=== PATIENT | female | born 1955 | race Caucasian/White ===

== ENCOUNTER 2017-08-20 10:06 | Emergency (ER) | payer OTHER ==
[2017-08-20 10:13] VITALS: BP 115/77; PULSE 55; RESP 18; TEMP 97.8
--- NOTE | 2017-08-20 10:19 | ED ---
Lower Extremity Injury HPI - General Chief Complaint: Extremity Injury, Lower Stated Complaint: Fell foot pain Time Seen by Provider: 08/20/17 10:13 Source: patient, RN notes reviewed Mode of arrival: wheelchair Limitations: no limitations - History of Present Illness Initial Comments: This is a 62-year-old female presents emergency Department chief complaint of left ankle injury. She states that she was walking into her house misstepped and fell forward. She states she injured her left ankle and not exactly sure how. She states she is sore in other places but no other major complaints. Denies any head injury no loss conscious. She is notices there is a large amount of swelling to the lateral aspect. She's had no prior fracture to her left ankle. She has increased pain with weightbearing denies any paresthesias. - Related Data Home Medications Medication Instructions Recorded Confirmed Aspirin 325 mg PO DAILY 06/10/14 06/11/14 Carvedilol [Coreg] 25 mg PO HS 06/10/14 06/11/14 Hydrochlorothiazide [Hydrodiuril] 25 mg PO DAILY 06/10/14 06/11/14 Levothyroxine Sodium [Synthroid] 25 mcg PO DAILY 06/10/14 06/11/14 Lisinopril [Zestril] 10 mg PO HS 06/10/14 06/11/14 Sertraline [Zoloft] 50 mg PO HS 06/10/14 06/11/14 Tolterodine Tartrate [Detrol LA] 4 mg PO HS 06/10/14 06/11/14 metFORMIN HCL [Glucophage] 500 mg PO BID 06/10/14 06/11/14 Previous Rx's Medication Instructions Recorded Hydrocodone/Acetaminophen [[place] 1 - 2 each PO Q4HR PRN #30 tab 06/11/14 5-325] Allergies Allergy/AdvReac Type Severity Reaction Status Date / Time No Known Allergies Allergy Verified 08/20/17 10:13 Review of Systems ROS Statement: Those systems with pertinent positive or pertinent negative responses have been documented in the HPI. ROS Other: All systems not noted in ROS Statement are negative. Past Medical History Past Medical History: Diabetes Mellitus, Hypertension, Osteoarthritis (OA), Thyroid Disorder Additional Past Medical History / Comment(s): left hip & neck pain, RLS History of Any Multi-Drug Resistant Organisms: None Reported Additional Past Surgical History / Comment(s): D & C, colonoscopy, left breast biopsy Past Anesthesia/Blood Transfusion Reactions: Previous Problems w/ Anesthesia Additional Past Anesthesia/Blood Transfusion Reaction / Comment(s): difficult intubation-supposed to have uterine ablation few years ago & couldn't complete, unsure what actual problem is Past Psychological History: Depression Smoking Status: Former smoker Past Alcohol Use History: None Reported Past Drug Use History: None Reported - Past Family History Sister(s) Family Medical History: Cancer General Exam Limitations: no limitations General appearance: alert, in no apparent distress Head exam: Present: atraumatic, normocephalic, normal inspection Respiratory exam: Present: normal lung sounds bilaterally. Absent: respiratory distress, wheezes, rales, rhonchi, stridor Cardiovascular Exam: Present: regular rate, normal rhythm, normal heart sounds. Absent: systolic murmur, diastolic murmur, rubs, gallop, clicks Extremities exam: Present: other (Left ankle there is moderate swelling and tenderness with palpation to the lateral malleolus, there is no medial malar tenderness there is no foot tenderness neurovascular intact no proximal tib-fib tenderness) Skin exam: Present: warm, dry, intact, normal color. Absent: rash Course Vital Signs 08/20/17 10:07 Temperature 97.8 F Pulse Rate 55 L Respiratory 18 Rate Blood Pressure 115/77 O2 Sat by Pulse 95 Oximetry Procedures - Orthopedic Splinting/Casting Injury #1 Side: left Lower Extremity Injury Location: short leg, ankle Lower Extremity Immobilizer: posterior splint, synthetic pre-padded splint Medical Decision Making - Medical Decision Making 62-year-old female presented for left ankle injury. She is found to have an avulsion fracture. She was splinted and follow up with orthopedics. Disposition Clinical Impression: Closed left ankle fracture Disposition: HOME SELF-CARE Condition: Stable Instructions: Ankle Fracture (ED) Additional Instructions: Please return to the Emergency Department if symptoms worsen or any other concerns. Is patient prescribed a controlled substance at d/c from ED?: No Referrals: Mariya Wilkinson MD [Primary Care Provider] - 1-2 days Rigo Andrade MD [Medical Doctor] - 1-2 days Time of Disposition: 11:27
--- NOTE | 2017-08-20 10:50 | XR ---
EXAMINATION TYPE: XR foot complete LT , 3 VIEWS DATE OF EXAM ORDERED: 08/20/2017 HISTORY: Pain. COMPARISON: None. FINDINGS: There is minimal degenerative change in the left first MTP joint. No fracture or dislocati on is seen. There is a small plantar calcaneal spur. IMPRESSION: 1. NO ACUTE OSSEOUS LESION. 2. MINIMAL DEGENERATIVE CHANGE. 3. SMALL, PLANTAR CALCANEAL SPUR.
--- NOTE | 2017-08-20 11:10 | XR ---
EXAMINATION TYPE: XR ankle complete LT , 3 VIEWS DATE OF EXAM ORDERED: 08/20/2017 HISTORY: Pain. COMPARISON: None. FINDINGS: There is soft tissue swelling about the ankle. There is an ossific density just distal to the medial malleolus which appears corticated but has sharp angles on the oblique projection. I could not exclude an avulsion. No ankle joint effusion is seen. There is a plantar calcaneal spur. IMPRESSION: PLEASE CORRELATE TO EXCLUDE AN AVULSION FRACTURE FROM THE MEDIAL MALLEOLUS.
== END 2017-08-20 11:40 | disposition home or self-care (01) ==
LOC: EC 10:06
DX: S82.892A Other fracture of left lower leg, initial encounter for closed fracture (principal); E11.9 Type 2 diabetes mellitus without complications; I10 Essential (primary) hypertension; E07.9 Disorder of thyroid, unspecified; F32.9 Major depressive disorder, single episode, unspecified; Z87.891 Personal history of nicotine dependence; Z79.82 Long term (current) use of aspirin; Z79.84 Long term (current) use of oral hypoglycemic drugs; Z79.899 Other long term (current) drug therapy; W18.39XA Other fall on same level, initial encounter; Y92.009 Unspecified place in unspecified non-institutional (private) residence as the place of occurrence of the external cause; Y93.01 Activity, walking, marching and hiking
CPT/HCPCS: 29515; 99283

== ENCOUNTER → 2018-08-31 | Outpatient (CLI) | payer OTHER ==
--- NOTE | 2018-09-04 16:46 | MM ---
Reason for exam: screening (asymptomatic). Last mammogram was performed 3 years and 5 months ago. History: Patient is postmenopausal. Family history of breast cancer in sister at age 60. Benign US breast localization LT, June 11, 2014. Benign US LT VAD breast biopsy of the left breast, May 07, 2012. Benign left US cyst aspiration of the left breast, January 05, 2010. Benign US left guided VAD of the left breast, January 05, 2010. Took hormonal contraceptives for 1 month. Taking progesterone for 1 year 1 month beginning at age 55. MG Screening Mammo w CAD Bilateral CC and MLO view(s) were taken. Prior study comparison: April 16, 2015, bilateral MG screening mammo w CAD. December 15, 2014, left breast MG 3d diag mammo w/cad LT. The breast tissue is heterogeneously dense. This may lower the sensitivity of mammography. Possible distortion central upper outer quadrant left breast. Asymmetric density 3 o'clock right breast anterior to middle depth. ASSESSMENT: Incomplete: need additional imaging evaluation, BI-RAD 0 RECOMMENDATION: Special view mammogram of both breasts. [facility] will attempt to contact patient to return for supplemental views.
== END | disposition home or self-care (01) ==
LOC: RADMAMWWP 09:46
PROVIDERS: ATTEND Family Medicine
DX: Z12.31 Encounter for screening mammogram for malignant neoplasm of breast (principal)
CPT/HCPCS: 77067

== ENCOUNTER → 2018-09-18 | Outpatient (CLI) | payer OTHER ==
--- NOTE | 2018-09-19 11:03 | MM ---
Reason for exam: additional evaluation requested from abnormal screening. Last mammogram was performed 1 month ago. History: Patient is postmenopausal. Family history of breast cancer in sister at age 60. Benign US breast localization LT, June 11, 2014. Benign US LT VAD breast biopsy of the left breast, May 07, 2012. Benign left US cyst aspiration of the left breast, January 05, 2010. Benign US left guided VAD of the left breast, January 05, 2010. Took hormonal contraceptives for 1 month. Taking progesterone for 1 year 1 month beginning at age 55. Physical Findings: Nurse did not find any significant physical abnormalities on exam. MG Work Up Mamm w CAD BILAT Bilateral spot compression CC, spot compression MLO, and ML view(s) were taken. Prior study comparison: August 31, 2018, bilateral MG screening mammo w CAD. April 16, 2015, bilateral MG screening mammo w CAD. The breast tissue is heterogeneously dense. This may lower the sensitivity of mammography. There is a 7mm persistent spiculated mass 6-7cm from nipple at 1 o'clock in the upper outer quadrant of the left breast. Benign appearing bilateral calcifications. The previously seen abnormality resolves on additional views and appears as fibroglandular tissue compatible with summation on the right breast. These results were verbally communicated with the patient and result sheet given to the patient on 09/18/18. ASSESSMENT: Incomplete: need additional imaging evaluation, BI-RAD 0 RECOMMENDATION: Ultrasound of the left breast. upper outer quadrant
--- NOTE | 2018-09-19 11:06 | USB ---
Reason for exam: additional evaluation requested from abnormal screening. History: Patient is postmenopausal. Family history of breast cancer in sister at age 60. Benign US breast localization LT, June 11, 2014. Benign US LT VAD breast biopsy of the left breast, May 07, 2012. Benign left US cyst aspiration of the left breast, January 05, 2010. Benign US left guided VAD of the left breast, January 05, 2010. Took hormonal contraceptives for 1 month. Taking progesterone for 1 year 1 month beginning at age 55. US Breast Workup Limited LT Left limited breast ultrasound including focal area of concern, retroareolar and axilla demonstrates a 0.6 x 0.4 x 0.4cm mixed lesion at 2 o'clock, likely benign cystic cluster and a 0.3 x 0.4 x 0.2cm mixed lesion at 2 o'clock, thought to correspond to mammographic finding, biopsy recommended. Confirm placement of the biopsy marker within the mammographic mass after biopsy. These results were verbally communicated with the patient and result sheet given to the patient on 09/18/18. ASSESSMENT: Suspicious, BI-RAD 4 RECOMMENDATION: Ultrasound core biopsy of the left breast. Called Dr. Wilkinson with mammographic findings and has scheduled an appointment for the patient for 11/07/[address] Rocha. Biopsy scheduled for 10/10/18 at 2:00. PRELIMINARY REPORT CALLED AND FAXED TO DR. ROCHA ON 09/19/18.
== END | disposition home or self-care (01) ==
LOC: RADMAMWWP 13:24
PROVIDERS: ATTEND Family Medicine
DX: R92.8 Other abnormal and inconclusive findings on diagnostic imaging of breast (principal)
CPT/HCPCS: 77066

== ENCOUNTER → 2018-10-10 | Day surgery (SDC) | payer OTHER ==
[2018-10-10 13:44] VITALS: RESP 16; BMI 44.4
[2018-10-10 14:34] VITALS: BP 139/85; PULSE 60; TEMP 97.7
--- NOTE | 2018-10-10 15:20 | USB ---
EXAMINATION TYPE: US biopsy breast VAD LT, MG diagnostic mammo LT wo CAD DATE OF EXAM: 10/10/2018 CLINICAL HISTORY: R92.8 ABN DAGO. TECHNIQUE: Ultrasound guided core biopsy of left breast. COMPARISON: Breast exams dating back to 08/31/2018 FINDINGS: The procedure of ultrasound guided core biopsy was explained to the patient. Benefits, alternatives, and risks were discussed. An informed consent was then obtained. Preprocedural timeout was performed. The patient was placed in supine positioning for imaging and for the procedure. The overlying skin was prepped and draped in usual sterile fashion. Lidocaine buffered with bicarbonate was used as anesthetic into the skin and subcutaneous tissue up to a 0.3 x 0.4 x 0.2 cm mass at the 2:00 position in the left breast. Under ultrasound guidance, a 12-gauge vacuum assisted biopsy gun device was used to obtain 4 core samples. Following this, a ribbon-shaped biopsy marker was left at the site of biopsy. Postprocedure mammogram demonstrates appropriate biopsy marker placement, however this does not correspond with the mammographic spiculated mass in question. The patient tolerated the procedure well without any immediate complication. The patient was kept in the radiology department for short stay after the procedure and then discharged home in stable condition. IMPRESSION: Successful, uncomplicated ultrasound guided core biopsy of 0.3 x 0.4 x 0.2 cm mass at the 2:00 position in the left breast, full pathology results to follow. Of note the ribbon-shaped biopsy marker does NOT correspond to the mammographic abnormality in question is a 1.5 cm away from this on both views. Stereotactic biopsy is recommended for the spiculated mass at the upper outer quadrant of the left breast at middle depth. 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 See Surgical Pathology Cancer Case Summary and Comment. Recommendation Surgical consult of the left breast. Additional stereotactic biopsy recommended for a spiculated mass 1.5cm away. [facility]
== END ==
LOC: RADUSWWP 13:05
PROVIDERS: ATTEND Surgery
DX: D05.12 Intraductal carcinoma in situ of left breast (principal); R92.1 Mammographic calcification found on diagnostic imaging of breast
CPT/HCPCS: 77065; 19083; A4648; J2001; 88305; 88341; 88342

== ENCOUNTER → 2018-11-09 | Day surgery (SDC) | payer OTHER ==
[2018-11-09 09:52] VITALS: RESP 16; BMI 44.4
[2018-11-09 11:25] VITALS: BP 126/82; PULSE 63; TEMP 98.1
--- NOTE | 2018-11-09 12:22 | MM ---
EXAMINATION TYPE: MG stereo VAD BX LT DATE OF EXAM: 11/09/2018 COMPARISON: Diagnostic left mammogram dated 10/10/2018 CLINICAL HISTORY: Left breast spiculated mass 1.5 cm from the left biopsy marker. Sterilely dedicated biopsy was recommended for this highly suspicious mass. TECHNIQUE: Stereotactic guided core biopsy of left breast. FINDINGS: The procedure of stereotactic guided core biopsy was explained to the patient. Benefits, alternatives, and risks were discussed. An informed consent was then obtained. Preprocedural timeout was performed. The shortness pathway for biopsy was chosen. Shortness pathway was lateral to medial approach. Preprocedural localization images were obtained and a 7 mm mass within the upper outer quadrant of the left breast was demonstrated. Coordinates were calculated. Subsequently 10 cc of lidocaine without epinephrine was utilized to anesthetize the skin and deeper subcutaneous soft tissues. The needle was advanced to the appropriate depth. Prefire images were obtained ensuring appropriate location. Postfire injection of 10 cc of lidocaine with epinephrine was utilized to anesthetize the site of biopsy. A vacuum assisted biopsy gun was used to obtain 8 core samples. The patient tolerated the procedure well without any immediate complication. The patient was kept in the radiology department for short stay after the procedure and then discharged home in stable condition. Post biopsy mammogram shows the biopsy marker to appear in satisfactory position relative to the targeted area of concern on the preprocedure images without migration. IMPRESSION: SUCCESSFUL, UNCOMPLICATED STEREOTACTIC GUIDED CORE BIOPSY OF A HIGHLY SUSPICIOUS SPICULATED MASS OF THE LEFT BREAST IN THE UPPER OUTER QUADRANT, FULL PATHOLOGY RESULTS TO FOLLOW. 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 See Surgical Pathology Cancer Case Summary and comment. Recommendation Surgical consult of the left breast. Definitive surgical/medical management at two sites on the left. Left breast 2 o'clock biopsied under ultrasound on 10/10/18, surgical management, DCIS. [facility]
== END | disposition home or self-care (01) ==
LOC: RADMAMWWP 09:24
PROVIDERS: ATTEND Surgery
DX: C50.412 Malignant neoplasm of upper-outer quadrant of left female breast (principal); Z17.0 Estrogen receptor positive status [ER+]
CPT/HCPCS: 88305; 88342; 88341; 19081; A4648; J2001

== ENCOUNTER → 2018-11-14 | Outpatient (CLI) | payer OTHER ==
[2018-11-14 16:03] LABS: Basophils # (A) 0.1 k/uL (0-0.2); Basophils % (A) 1 %; Eosinophils # (A) 0.3 k/uL (0-0.7); Eosinophils % (A) 4 %; HCT 47.4 % (34.0-46.0); HGB 16.1 gm/dL (11.4-16.0); Lymphocytes # (A) 2.5 k/uL (1.0-4.8); Lymphocytes % (A) 34 %; MCH 31.6 pg (25.0-35.0); MCV 92.9 fL (80.0-100.0); Mean Platelet Volume 6.3; Monocytes # (A) 0.4 k/uL (0-1.0); Monocytes % (A) 6 %; Neutrophils % (A) 54 %; Platelet Count 209 k/uL (150-450); RDW 12.7 % (11.5-15.5); WBC 7.4 k/uL (3.8-10.6)
== END | disposition home or self-care (01) ==
LOC: LABPAT 14:31
PROVIDERS: ATTEND Obstetrics & Gynecology
DX: Z01.818 Encounter for other preprocedural examination (principal); N93.9 Abnormal uterine and vaginal bleeding, unspecified
CPT/HCPCS: 85025; 93005

== ENCOUNTER → 2018-11-23 | Outpatient (CLI) | payer OTHER | END | disposition home or self-care (01) | LOC: RADMRIMAIN 12:12 | PROVIDERS: ATTEND Surgery | DX: Z53.9 Procedure and treatment not carried out, unspecified reason (principal) ==

== ENCOUNTER 2018-12-13 10:38 | Day surgery (SDC) | payer OTHER ==
[2018-12-10 14:36] VITALS: BMI 44.5
--- NOTE | 2018-12-12 20:44 | P.GSHP ---
History of Present Illness H&P Date: 12/12/18 Chief Complaint: Left breast cancer 63-year-old female underwent recent mammogram and ultrasound. Ultrasound core biopsy revealed rate 1-2 DCIS. Clip was 1.5 cm away from the initial abnormality seen on mammogram. Patient then went for stereotactic core biopsy which revealed invasive ductal cancer. She is ER/[place] positive. Again 2 areas in close proximity. MRI was scheduled after presenting her case at breast tumor conference. Unfortunately patient is not able to fit in the local MRI units as well as the open MRI units outside of town that we have contacted. She is not interested in mastectomy. She is now interested in plastic surgery evaluation at this time. She would like to proceed with breast conservation. Patient is otherwise asymptomatic. History of difficult intubation. She was taking progesterone for uterine wall thickening. She had previously been scheduled for uterine ablation. Past Medical History Past Medical History: Cancer, Diabetes Mellitus, Hypertension, Osteoarthritis (OA), Thyroid Disorder Additional Past Medical History / Comment(s): left hip & neck pain, RLS, vaginal spotting, lt breast cancer History of Any Multi-Drug Resistant Organisms: None Reported Additional Past Surgical History / Comment(s): D & C, colonoscopy, left breast biopsy Past Anesthesia/Blood Transfusion Reactions: Previous Problems w/ Anesthesia Additional Past Anesthesia/Blood Transfusion Reaction / Comment(s): difficult intubation-supposed to have uterine ablation few years ago & couldn't complete, unsure what actual problem is Smoking Status: Former smoker - Past Family History Sister(s) Family Medical History: Cancer Medications and Allergies Home Medications Medication Instructions Recorded Confirmed Type Aspirin 325 mg PO DAILY 06/10/14 12/10/18 History Carvedilol [Coreg] 25 mg PO HS 06/10/14 12/10/18 History Hydrochlorothiazide [Hydrodiuril] 25 mg PO HS 06/10/14 12/10/18 History Levothyroxine Sodium [Synthroid] 75 mcg PO DAILY 06/10/14 12/10/18 History Lisinopril [Zestril] 10 mg PO HS 06/10/14 12/10/18 History Sertraline [Zoloft] 50 mg PO HS 06/10/14 12/10/18 History Tolterodine Tartrate [Detrol LA] 4 mg PO HS 06/10/14 12/10/18 History metFORMIN HCL [Glucophage] 1,000 mg PO BID 06/10/14 12/10/18 History Gabapentin [Neurontin] 1 - 2 tab PO HS 10/05/18 12/10/18 History Loratadine [Claritin] 10 mg PO DAILY 10/05/18 12/10/18 History glipiZIDE [Glucotrol XL] 2.5 mg PO DAILY 11/16/18 12/10/18 History Ergocalciferol [Vitamin D2] 50,000 unit PO SA 12/10/18 12/10/18 History Allergies Allergy/AdvReac Type Severity Reaction Status Date / Time No Known Allergies Allergy Verified 12/10/18 14:27 Surgical - Exam Physical exam: General: Well-developed, well-nourished HEENT: Normocephalic, sclerae nonicteric Left breast: No masses, no adenopathy, previous scars Right breast: No masses, no adenopathy Abdomen: Nontender, nondistended Extremities: No edema Neuro: Alert and oriented Assessment and Plan (1) Breast cancer, left Narrative/Plan: 63-year-old female with left breast cancer. 2 separate areas recently biopsy 1 by ultrasound 1 by stereotactic technique. These 2 areas within 1.5 cm of one another. MRI was ordered to evaluate the extent of this area and also to evaluate for other areas of possible invasive or preinvasive malignancy. Unfortunately we could not follow through with the MRI given the patient's body habitus. She is interested in proceeding with lumpectomy at this time. We'll schedule left breast lumpectomy with possible to wire localization, sentinel lymph node biopsy, possible axillary aries dissection. Risks of bleeding, infection, recurrence, possible positive margins, possible need for additional surgery, respiratory and cardiac complications. She understands and wishes to proceed. Status: Acute Code(s): C50.912 - MALIGNANT NEOPLASM OF UNSPECIFIED SITE OF LEFT FEMALE BREAST SNOMED Code(s): 068193197
--- NOTE | 2018-12-12 20:44 | P.NAPBC ---
NAPBC Queries - NAPBC Queries Was patient's case review presented at [facility] tumor board? If no, comment.: Yes Was patient's pathology reviewed at [facility]? If no, comment.: Yes Was breast conservation surgery offered? If no, comment.: Yes Was sentinel node biopsy offered? If no, comment.: Yes Was diagnosis confirmed by percutaneous core biopsy? If no, comment.: Yes Is patient mastectomy patient?: Yes Was a preop referral to reconstructive surgeon offered?: Yes Clinical Stage: 1a
[~2018-12-13 10:38] MED LIST: HEPARIN SODIUM,PORCINE 5,000 UNIT/ML 1 ML VIAL SQ ONE; HYDROmorphone 0.5 MG/0.5 ML SYRINGE IVP PRN; LACTATED RINGERS 1,000 ML IV SCH; ONDANSETRON 4 MG/2 ML VIAL IVP PRN; Pre Op ABX Message 1 EACH MISC MISCELLANE ONE
[2018-12-13] MEDS ORDERED: ALPRAZolam 0.25 MG TAB PO ONE (11:15)
[2018-12-13 11:31] LABS: Glucose,Whole Blood 147 mg/dL (75-99)
[2018-12-13] MEDS ORDERED: LIDOCAINE 1% INJ 10MG/ML (20 ML MDV) SQ ONE (12:12)
[2018-12-13] MEDS ORDERED: BUPIVACAINE (PF) 0.5% 30 ML VIAL SQ ONE ×4 (13:25→14:23)
[2018-12-13] MEDS ORDERED: MIDAZOLAM 2 MG/2 ML VIAL ONE (13:40)
[2018-12-13] MEDS ORDERED: PROPOFOL 10 MG/ML 20 ML VIAL IV ONE (13:40)
[2018-12-13] MEDS ORDERED: ePHEDrine SULFATE/0.9% NACL/PF 50 MG/5 ML SYRINGE IV ONE (13:40)
[2018-12-13] MEDS ORDERED: GLYCOPYRROLATE 0.2 MG/ML 2 ML VIAL ONE (13:40)
[2018-12-13] MEDS ORDERED: SUCCINYLCHOLINE CHLORIDE 100 MG/5 ML SYR IV ONE (13:40)
[2018-12-13] MEDS ORDERED: LIDOCAINE 1% INJ 10MG/ML (20 ML MDV) ONE (13:40)
[2018-12-13] MEDS ORDERED: fentaNYL (PF) 50 MCG/ML 2 ML AMP ONE (13:40)
[2018-12-13] MEDS ORDERED: KETOROLAC 30 MG/ML 1 ML VIAL ONE (13:40)
--- NOTE | 2018-12-13 13:41 | NM ---
EXAMINATION TYPE: NM sentinel node injection DATE OF EXAM: 12/13/2018 COMPARISON: NONE HISTORY: Left breast cancer TECHNIQUE AND FINDINGS: The procedure of sentinel lymph node injection was explained to the patient. The benefits, alternatives, and risks were discussed. An informed consent was then obtained. Overlying skin is cleaned with sterile alcohol. Following this, 490 uCi [id number] Tilmanocept was inject ed in the upper outer aspect of the left nipple intradermally. The patient tolerated the procedure well without any immediate complication. The patient was kept in the radiology department for short stay after the procedure and then taken to surgery for surgical p rocedure what is presumed intraoperative gamma probe will be used for sentinel lymph node detection. IMPRESSION: Left breast radiotracer injection for sentinel node localization as above.
[2018-12-13] MEDS ORDERED: METHYLENE BLUE 50 MG/10 ML AMPUL INJ ONE (14:02)
[2018-12-13] MEDS ORDERED: SODIUM CHLORIDE 0.9% 150 ML with ceFAZolin 3,000 MG IV ONE ×2 (14:02)
[2018-12-13] MEDS ORDERED: LACTATED RINGERS 1,000 ML IV ONE (15:30)
[2018-12-13] MEDS ORDERED: NALOXONE 0.4 MG/ML 1 ML VIAL IV PRN (15:41)
[2018-12-13] MEDS ORDERED: HYDROcodone/APAP 5-325MG 1 EACH TAB PO PRN (15:41)
--- NOTE | 2018-12-13 15:43 | MM ---
EXAMINATION TYPE: MG pre op loc each addl LT, MG pre op needle loc LT, MG surgical specimen LT DATE OF EXAM: 12/13/2018 COMPARISON: 11/09/2018, 10/10/2018 and 09/18/2018 CLINICAL HISTORY: 2 site left breast biopsy-proven breast cancer with request for mammographic guided needle localization TECHNIQUE: 2 separate needle localization with wire placement and surgical excision of areas of concern in the left breast (invasive differentiated ductal carcinoma-T shaped marker and ductal carcinoma in [id number] biopsy marker). FINDINGS: The procedure of needle localization with wire placement and than surgical excision was explained to the patient. Benefits, alternatives, and risks were discussed. An informed consent was then obtained. Preprocedural timeout was performed. Site A (ribbon biopsy marker): The shortest pathway for procedure was chosen. Shortest pathway was CC from above approach. The overlying skin was prepped and draped in usual sterile fashion. Lidocaine buffered with bicarbonate was used as anesthetic into the skin and subcutaneous tissue up to the level of area of concern. A 5 cm needle was used. It was placed via a CC from above approach under mammographic guidance. Subsequent 90 degrees mammogram show the needle to be in satisfactory position relative to the targeted area. At this point, wire was placed and the needle was withdrawn. The wire was fixed to patient's skin. Images were marked for surgeon. Site B (T-shaped biopsy marker): The shortest pathway for procedure was chosen. Shortest pathway was CC from above approach. The overlying skin was prepped and draped in usual sterile fashion. Lidocaine buffered with bicarbonate was used as anesthetic into the skin and subcutaneous tissue up to the level of area of concern. A 5 cm needle was used. It was placed via a CC from above approach under mammographic guidance. Subsequent 90 degrees mammogram show the needle to be in satisfactory position relative to the targeted area. At this point, wire was placed and the needle was withdrawn. The wire was fixed to patient's skin. Images were marked for surgeon. The patient tolerated the procedure well without any immediate complication. The patient was kept in the radiology department for short stay after the procedure and then taken to surgery for surgical excision. Targeted biopsy markers and wire are identified in specimen mammogram. The patient was kept in hospital for short stay after the procedure and then discharged home in stable condition. Findings were communicated with the OR at 1541 PM on 12/13/2018 IMPRESSION: Successful, uncomplicated needle localization with wire placement and surgical excision of 2 left-sided biopsy markers indicating the known biopsy-proven breast cancer, full pathology results to follow. Pathology Results: Malignant A. LEFT BREAST, SENTINEL LYMPH NODE BIOPSY: One lymph node negative for metastatic adenocarcinoma as determined by interpretation of H+E as well as appropriately controlled ARMAND and cytokeratin 7 stained sections. B. LEFT BREAST MASS, LUMPECTOMY: Invasive moderately differentiated ductal carcinoma (Grade 2) and intermediate grade duct carcinoma in situ. Infiltrating duct carcinoma focally contacts the green inked inferior margin and DCIS is either at near the inferior anterior blue/green margin. See Specimen C. C. NEW LEFT BREAST MARGIN, EXCISION: Low grade duct carcinoma in situ not contacting the new blue/green/purple inked margin of excision. See Surgical Pathology Cancer Case Summary. Recommendation Surgical consult of the left breast. Continued surgical management. [facility]
--- NOTE | 2018-12-13 15:47 | P.OP ---
Date of Procedure: 12/13/18 Procedure(s) Performed: REOPERATIVE DIAGNOSIS: Left breast cancer POSTOPERATIVE DIAGNOSIS: Same PROCEDURE: Left Breast wire localization lumpectomy with sentinel lymph node biopsy SURGEON: Josefina EBL: Minimal ANESTHESIA: General COMPLICATIONS: None OPERATIVE PROCEDURE: Patient was placed on the operating room table in the supine position. 2 mL of methylene blue was injected into the subareolar space. The breast was then massaged for 5 minutes. The breast was prepped and draped in usual sterile fashion. The left axilla was addressed at that time. The hot spot in the right axilla was identified. The degree of radioactivity was actually quite minimal. A small curvilinear incision was made using the scalpel. Dissection down through the subcutaneous tissues took place using electrocautery. Using the neoprobe I identified a single lymph node that was radioactive. No residual radioactivity was encountered. There was no blue dye present within the dissected axilla. This lymph node appeared clinically benign. This was sent to pathology for permanent sectioning. No bleeding was seen. The subcutaneous tissues were closed using 3-0 Vicryl sutures. The skin was closed using 4-0 Monocryl sutures. The wire entrance site was then addressed. This was present at the 2:00 location. 2 wires were entering the skin approximate 1 cm apart from one another. A curvilinear incision was made adjacent to the wire entrance site. I followed the wires down into the breast tissue. An adequate lumpectomy specimen then took place around the wires. Margins of 1.5-2 cm worth attempted to be achieved. Palpation of the specimen suggested that the inferior margin was indurated and clinically somewhat suspicious. This margin included a small portion of the lateral and medial margin as well. This new margin was painted on the new side using the appropriate 3 colors for medial inferior and lateral. The initial specimen was also painted the appropriate 6 colors. Clips were used to identify the lumpectomy cavity. The clips were confirmed to be within the lumpectomy specimen by radiology. The subcutaneous tissues were closed using 3-0 Vicryl sutures. The skin was closed using a running 4-0 Monocryl stitch. Skin glue and sterile dressings were then applied. DISPOSITION: Stable to recovery room
[2018-12-13 15:58] VITALS: TEMP 97.9
[2018-12-13 17:12] VITALS: RESP 18
[2018-12-13] MEDS ORDERED: HYDROcodone/APAP 5-325MG 1 EACH TAB PO ONE (17:51)
[2018-12-13 18:17] VITALS: BP 144/88; PULSE 75
== END 2018-12-13 18:40 | disposition home or self-care (01) ==
LOC: OR 10:38
PROVIDERS: ATTEND Surgery
DX: C50.912 Malignant neoplasm of unspecified site of left female breast (principal); C77.3 Secondary and unspecified malignant neoplasm of axilla and upper limb lymph nodes; E11.9 Type 2 diabetes mellitus without complications; I10 Essential (primary) hypertension; M19.90 Unspecified osteoarthritis, unspecified site; E07.9 Disorder of thyroid, unspecified; G25.81 Restless legs syndrome; Z87.891 Personal history of nicotine dependence; Z79.84 Long term (current) use of oral hypoglycemic drugs; Z79.82 Long term (current) use of aspirin; Z79.890 Hormone replacement therapy; Z79.899 Other long term (current) drug therapy
CPT/HCPCS: 19301; 38525; 81025; 84132; 88342; 88307; 88341; 76098; 38792; A9520; J2250; J1644; J2405; J0690; J2001; J3010; J1885; J0330; J2704; Q9968; 19282

== ENCOUNTER → 2019-07-02 | Outpatient (CLI) | payer OTHER ==
[2019-07-02 13:25] LABS: Basophils # (A) 0.1 k/uL (0-0.2); Basophils % (A) 1 %; Eosinophils # (A) 0.4 k/uL (0-0.7); Eosinophils % (A) 6 %; HCT 48.2 % (34.0-46.0); HGB 15.6 gm/dL (11.4-16.0); Lymphocytes # (A) 2.1 k/uL (1.0-4.8); Lymphocytes % (A) 28 %; MCH 30.2 pg (25.0-35.0); MCHC 32.4 g/dL (31.0-37.0); MCV 93.4 fL (80.0-100.0); Mean Platelet Volume 7.5; Monocytes # (A) 0.4 k/uL (0-1.0); Monocytes % (A) 6 %; Neutrophils # (A) 4.5 k/uL (1.3-7.7); Neutrophils % (A) 59 %; Platelet Count 228 k/uL (150-450); RBC 5.16 m/uL (3.80-5.40); RDW 12.9 % (11.5-15.5); WBC 7.7 k/uL (3.8-10.6)
== END | disposition home or self-care (01) ==
LOC: LABPAT 11:57
PROVIDERS: ATTEND Obstetrics & Gynecology
DX: Z01.818 Encounter for other preprocedural examination (principal); N95.0 Postmenopausal bleeding; N85.01 Benign endometrial hyperplasia
CPT/HCPCS: 85025

== ENCOUNTER → 2019-07-05 | Outpatient (CLI) | payer OTHER | END | disposition home or self-care (01) | LOC: LABWHC1 11:01 | PROVIDERS: ATTEND Obstetrics & Gynecology | DX: Z11.59 Encounter for screening for other viral diseases (principal) ==

== ENCOUNTER 2019-07-08 10:00 | Day surgery (SDC) | payer OTHER ==
[2019-07-04 14:52] VITALS: BMI 44.5
[~2019-07-08 10:00] MED LIST changes: +DEXAMETHASONE SOD PHOSPHATE 10 MG/ML 1 ML VIAL IV ONE; -HEPARIN SODIUM,PORCINE 5,000 UNIT/ML 1 ML VIAL SQ ONE; -LACTATED RINGERS 1,000 ML IV SCH; +ONDANSETRON 4 MG/2 ML VIAL IVP ONE; -ONDANSETRON 4 MG/2 ML VIAL IVP PRN
[2019-07-08] MEDS: LACTATED RINGERS 1,000 ML IV SCH ×2 (10:25→11:31)
[2019-07-08] MEDS ORDERED: KETOROLAC 30 MG/ML 1 ML VIAL ONE (11:28)
[2019-07-08] MEDS ORDERED: LIDOCAINE 1% INJ 10MG/ML (20 ML MDV) ONE (11:28)
[2019-07-08] MEDS ORDERED: MIDAZOLAM 2 MG/2 ML VIAL ONE (11:28)
[2019-07-08] MEDS ORDERED: SUCCINYLCHOLINE CHLORIDE 100 MG/5 ML SYR IV ONE (11:28)
[2019-07-08] MEDS ORDERED: PROPOFOL 10 MG/ML 20 ML VIAL IV ONE (11:28)
[2019-07-08] MEDS ORDERED: fentaNYL (PF) 50 MCG/ML 2 ML AMP ONE (11:28)
--- NOTE | 2019-07-08 12:05 | P.OP ---
Date of Procedure: 07/08/19 Preoperative Diagnosis: Postmenopausal bleeding, history of non-atypical endometrial hyperplasia, partially treated Postoperative Diagnosis: Multiple large endometrial polyps, grade 2 rectocele, grade 2 uterine prolapse. Procedure(s) Performed: Hysteroscopy, fractional D&C Anesthesia: JESSE Surgeon: Darline Berman Estimated Blood Loss (ml): 25 IV fluids (ml): 400 Urine output (ml): 200 Pathology: other (Endocervical curettings, endometrial curettings and polyps) Condition: stable Disposition: PACU Operative Findings: Grade 2 rectocele. At least grade 2 uterine prolapse, large cervix. Uterine depth 11 cm. Multiple large endometrial polyps. Description of Procedure: Patient is brought to the operating suite where general anesthetic is administered. She's placed in the dorsal lithotomy position. The appropriate timeout is performed to assure proper patient and procedural identification. Antibiotics are not deemed necessary. The cervix vagina and lower abdominal ott are all prepped and draped in usual sterile fashion. Examination under anesthesia reveals a 10 week size uterus, anteverted and mobile. Negative adnexa bilaterally. Bladder is drained for approximately 200 mL of clear yellow urine. Weighted speculum was placed into the vagina. Anterior lip of the cervix is grasped with a double-tooth tenaculum. Endocervical curettings are sent to pathology, procured utilizing a Kevorkian curette. The uterus then sounds to a depth of 11 cm in the anteverted position. The cervix is gently and systematically dilated using Hanks dilators. Hysteroscope was inserted and the cavity is distended with sterile saline. Inspection of the cavity reveals multiple large endometrial polyps. Hysteroscope was removed. A large sharp curette is used and the polyps are removed. A ring forcep is used for final polyp removal. The hysteroscope was once again placed and the cavity is noted to be clear. The cervix is hemodynamically stable. No active bleeding is noted. All sponge needle and enhancement counts are correct at the end of the procedure. Patient is brought back to recovery room in very good condition with stable vital signs including blood pressure 105/62, pulse 50, 95% O2 saturation. Toradol is given prior to leaving the operative suite. Patient will follow-up with me in the office in 2 weeks.
[2019-07-08 12:09] VITALS: TEMP 97.3
[2019-07-08 12:36] LABS: Glucose,Whole Blood 152 mg/dL (75-99)
[2019-07-08 12:37] LABS: Glucose,Whole Blood 157 mg/dL (75-99)
[2019-07-08 13:22] VITALS: RESP 20
[2019-07-08 13:40] VITALS: BP 134/79; PULSE 61
== END 2019-07-08 13:53 | disposition home or self-care (01) ==
LOC: OR 10:00
PROVIDERS: ATTEND Obstetrics & Gynecology
DX: N84.0 Polyp of corpus uteri (principal); N81.2 Incomplete uterovaginal prolapse; N95.0 Postmenopausal bleeding; F32.9 Major depressive disorder, single episode, unspecified; I10 Essential (primary) hypertension; G25.81 Restless legs syndrome; E11.9 Type 2 diabetes mellitus without complications; F17.210 Nicotine dependence, cigarettes, uncomplicated; K08.89 Other specified disorders of teeth and supporting structures; E07.9 Disorder of thyroid, unspecified; R32 Unspecified urinary incontinence; E66.01 Morbid (severe) obesity due to excess calories; Z68.41 Body mass index [BMI] 40.0-44.9, adult; Z85.3 Personal history of malignant neoplasm of breast; Z98.890 Other specified postprocedural states; Z79.82 Long term (current) use of aspirin; Z79.899 Other long term (current) drug therapy; Z79.84 Long term (current) use of oral hypoglycemic drugs; Z79.890 Hormone replacement therapy; Z91.89 Other specified personal risk factors, not elsewhere classified; Z87.898 Personal history of other specified conditions; Z82.49 Family history of ischemic heart disease and other diseases of the circulatory system; Z80.3 Family history of malignant neoplasm of breast; Z80.0 Family history of malignant neoplasm of digestive organs
CPT/HCPCS: 58558; 88305; 84132; J2250; J1100; J2405; J2001; J3010; J1885; J0330; J2704

== ENCOUNTER → 2020-03-12 | Outpatient (CLI) | payer OTHER ==
--- NOTE | 2020-03-13 10:27 | MM ---
Reason for exam: screening (asymptomatic). Last mammogram was performed 1 year and 5 months ago. History: Patient is postmenopausal and has history of breast cancer at age 63. Family history of breast cancer in sister at age 60. Malignant MG pre op loc each addl LT of the left breast, December 13, 2018. Malignant MG pre op needle loc LT of the left breast, December 13, 2018. 2 lumpectomies of the left breast, December 13, 2018. Malignant MG stereo VAD BX LT of the left breast, November 09, 2018. Malignant US biopsy breast VAD LT of the left breast, October 10, 2018. Benign US breast localization LT, June 11, 2014. Benign US LT VAD breast biopsy of the left breast, May 07, 2012. Benign left US cyst aspiration of the left breast, January 05, 2010. Benign US left guided VAD of the left breast, January 05, 2010. Took hormonal contraceptives for 1 month. Took progesterone for 1 year 1 month beginning at age 55. Taking antineoplastic beginning at age 63. Physical Findings: A clinical breast exam by your physician is recommended on an annual basis and results should be correlated with mammographic findings. MG Diagnostic Mammo w CAD EDWIN Bilateral CC, MLO, and XCCL view(s) were taken. Prior study comparison: October 10, 2018, left breast MG diagnostic mammo LT wo CAD. September 18, 2018, bilateral MG work up mamm w CAD BILAT. Post biopsy changes left upper outer quadrant. No significant new findings when compared with previous films. These results were verbally communicated with the patient and result sheet given to the patient on 03/12/20. ASSESSMENT: Benign, BI-RAD 2 RECOMMENDATION: Follow-up diagnostic mammogram of both breasts in 1 year.
== END | disposition home or self-care (01) ==
LOC: RADMAMWWP 10:03
PROVIDERS: ATTEND Family Medicine
DX: Z08 Encounter for follow-up examination after completed treatment for malignant neoplasm (principal); Z85.3 Personal history of malignant neoplasm of breast
CPT/HCPCS: 77066

== ENCOUNTER → 2021-06-01 | Outpatient (CLI) | payer MEDICARE, OTHER ==
[2021-06-02 01:07] LABS: HCT 48.8 % (37.2-46.3); HGB 15.9 g/dL (12.0-15.0); MCH 30.3 pg (27.0-32.0); MCHC 32.6 g/dL (32.0-37.0); Mean Platelet Volume 10.2 fL (9.5-12.2); NRBC Per 100 WBC 0 /100 WBCS (0.0-0.0); Platelet Count 270 X 10*3/uL (140-440); RBC 5.25 X 10*6/uL (4.10-5.20); RDW 12.6 % (11.5-14.5); WBC 8.75 X 10*3/uL (4.50-10.00)
[2021-06-02 02:49] LABS: ALT 25 U/L (8-44); AST 31 U/L (13-35); African American GFR (CKD) 76.6 (60.0-200.0); Albumin 4.9 g/dL (3.8-4.9); Albumin/Globulin Ratio 1.87 (1.60-3.17); Alkaline Phosphatase 93 U/L (41-126); BUN/Creat Ratio 13.17 Ratio (12.00-20.00); Calcium 10.1 mg/dL (8.7-10.3); Carbon Dioxide 23.8 mmol/L (20.0-27.5); Chloride 98 mmol/L (96-109); Chol/HDL Ratio 4.32 Ratio; Creatine Kinase 107 U/L (26-186); Globulin 2.6 g/dL (1.6-3.3); Glucose 171 mg/dL (70-110); LDL Cholesterol,Calculated 96.9 mg/dL (0.0-131.0); Magnesium 2.1 mg/dL (1.5-2.4); Non-African American GFR(CKD) 66.1 (60.0-200.0); Potassium 4.2 mmol/L (3.5-5.5); Sodium 139 mmol/L (135-145); Total Protein 7.6 g/dL (6.2-8.2)
== END | disposition home or self-care (01) ==
LOC: LABWHC1 16:03
PROVIDERS: ATTEND Family Medicine
DX: E11.69 Type 2 diabetes mellitus with other specified complication (principal); G62.9 Polyneuropathy, unspecified; F41.9 Anxiety disorder, unspecified
CPT/HCPCS: 36415; 80053; 80061; 81291; 82550; 83036; 83735; 84443; 84481; 85027

== ENCOUNTER → 2021-07-28 | Outpatient (CLI) | payer MEDICARE, OTHER ==
--- NOTE | 2021-07-28 11:20 | MM ---
Reason for Exam: Hx of breast cancer, conservation therapy. Last mammogram was performed 1 year(s) and 4 month(s) ago. Patient History: Menarche at age 14. First Full-Term at age 29. Postmenopausal. Breast cancer, left, age 63. Previous chest radiation therapy. 12/13/2018, Lumpectomy on the Left side. 12/13/2018, Lumpectomy on the Left side. 12/13/2018, Malignant Core Biopsy on the left side. 12/13/2018, Malignant Core Biopsy on the left side. 11/09/2018, Malignant Core Biopsy on the left side. 10/10/2018, Malignant Core Biopsy on the left side. Benign Core Biopsy. 05/07/2012, Benign Core Biopsy on the left side. 01/05/2010, Benign Cyst Aspiration on the left side. 01/05/2010, Benign Core Biopsy on the left side. Sister had breast cancer, age 60. Prior Study Comparison: 09/21/2000 Bilateral Screening Mammogram, [facility]. 12/09/2004 Bilateral Screening Mammogram, [facility]. 01/04/2005 Bilateral Diagnostic Mammogram, [facility]. 01/13/2006 Bilateral Screening Mammogram, [facility]. 01/25/2006 Right Diagnostic Mammogram, [facility]. 05/21/2007 Bilateral Screening Mammogram, [facility]. 05/28/2007 Left Diagnostic Mammogram, [facility]. 12/27/2007 Left Diagnostic Mammogram, [facility]. 07/31/2008 Bilateral Diagnostic Mammogram, [facility]. 12/11/2009 Bilateral Screening Mammogram, [facility]. 12/16/2009 Left Diagnostic Mammogram, [facility]. 12/16/2009 Left Diagnostic Ultrasound, [facility]. 08/11/2011 Bilateral Diagnostic Mammogram, [facility]. 08/11/2011 Left Diagnostic Ultrasound, [facility]. 03/09/2012 Left Diagnostic Ultrasound, [facility]. 05/07/2012 Left Diagnostic Mammogram, [facility]. 04/23/2014 Bilateral Diagnostic Mammogram, [facility]. 04/23/2014 Left Diagnostic Ultrasound, [facility]. 12/15/2014 Left Diagnostic Mammogram, [facility]. 04/16/2015 Bilateral Screening Mammogram, [facility]. 08/31/2018 Bilateral Screening Mammogram, [facility]. 09/18/2018 Bilateral Diagnostic Mammogram, [facility]. 09/18/2018 Left Diagnostic Ultrasound, [facility]. 10/10/2018 Left Diagnostic Mammogram, [facility]. 03/12/2020 Bilateral Diagnostic Mammogram, [facility]. Tissue Density: The breast tissue is heterogeneously dense. This may lower the sensitivity of mammography. Findings: Analyzed By CAD. There is postoperative changes of left-sided lumpectomy. Supratentorially and dystrophic type calcifications are seen bilaterally. There is no evidence for mass. Overall Assessment: Benign, BI-RAD 2 Management: Diagnostic Mammogram of both breasts in 1 year. A clinical breast exam by your physician is recommended on an annual basis and results should be correlated with mammographic findings. This exam should not preclude additional follow-up of suspicious palpable abnormalities. Results were given to the patient verbally at the time of exam. Electronically signed and approved by: Shashank Kilgore M.D. Radiologis
== END | disposition home or self-care (01) ==
LOC: RADMAMWWP 10:47
PROVIDERS: ATTEND Family Medicine
DX: R92.8 Other abnormal and inconclusive findings on diagnostic imaging of breast (principal); Z78.0 Asymptomatic menopausal state; Z80.3 Family history of malignant neoplasm of breast
CPT/HCPCS: 77066; G0279; 77062

== ENCOUNTER → 2023-09-08 | Outpatient (CLI) | payer MEDICARE, OTHER ==
--- NOTE | 2023-09-08 11:12 | MM ---
Reason for Exam: Hx of breast cancer, conservation therapy. Last mammogram was performed 1 year(s) and 1 month(s) ago. Patient History: Menarche at age 14. First Full-Term at age 29. Postmenopausal. Breast cancer, left, age 63. Previous chest radiation therapy. 12/13/2018, Lumpectomy on the Left side. 12/13/2018, Lumpectomy on the Left side. 12/13/2018, Malignant Core Biopsy on the left side. 12/13/2018, Malignant Core Biopsy on the left side. 11/09/2018, Malignant Core Biopsy on the left side. 10/10/2018, Malignant Core Biopsy on the left side. Benign Core Biopsy. 05/07/2012, Benign Core Biopsy on the left side. 01/05/2010, Benign Cyst Aspiration on the left side. 01/05/2010, Benign Core Biopsy on the left side. Sister had breast cancer, age 60. Prior Study Comparison: 08/31/2018 Bilateral Screening Mammogram, [facility]. 09/18/2018 Bilateral Diagnostic Mammogram, [facility]. 09/18/2018 Left Diagnostic Ultrasound, [facility]. 10/10/2018 Left Diagnostic Mammogram, [facility]. 03/12/2020 Bilateral Diagnostic Mammogram, [facility]. 07/28/2021 Bilateral MG 3D diag mammo w/cad EDWIN, [facility]. 08/29/2022 Bilateral MG 3D diag mammo w/cad EDWIN, [facility]. Tissue Density: The breasts are heterogeneously dense, which may obscure small masses. Findings: Analyzed By CAD. Stable postoperative changes left breast without definite recurrent mass. No masses seen within either breast. Benign calcified lesions noted bilaterally. Overall Assessment: Benign, BI-RAD 2 Management: Diagnostic Mammogram of both breasts in 1 year. . Results were given to the patient verbally at the time of exam. Patient should continue monthly self-breast exams. A clinical breast exam by your physician is recommended on an annual basis. This exam should not preclude additional follow-up of suspicious palpable abnormalities. Note on Margoth scores and lifetime risk: 1. A Margoth score greater than 3% is considered moderate risk. If this is the case, consider specialist referral to assess eligibility for a risk reducing agent. 2. If overall lifetime risk for the development of breast cancer is 20% or higher, the patient may qualify for future screening with alternating mammogram and breast MRI. Electronically signed and approved by: Shashank Kilgore M.D. Radiologis
== END | disposition home or self-care (01) ==
LOC: RADMAMWWP 10:42
PROVIDERS: ATTEND Family Medicine
DX: R92.333 Mammographic heterogeneous density, bilateral breasts (principal); Z85.3 Personal history of malignant neoplasm of breast; Z80.3 Family history of malignant neoplasm of breast; Z78.0 Asymptomatic menopausal state
CPT/HCPCS: 77066; G0279; 77062

== ENCOUNTER 2023-10-01 03:05 | Emergency (ER) | payer MEDICARE, OTHER ==
[2023-10-01 03:10] VITALS: RESP 18; TEMP 98.2
--- NOTE | 2023-10-01 03:28 | ED ---
Overdose HPI - General Chief Complaint: Overdose Stated Complaint: Overdose Time Seen by Provider: 10/01/23 03:10 Source: patient, EMS, RN notes reviewed, old records reviewed Mode of arrival: EMS Limitations: no limitations - History of Present Illness Initial Comments: This is a 68-year-old female who presents to the ER today for evaluation of confusion, altered mental status, spacing out, blacking out. Patient did take an edible, THC edible prior to arrival and that is when symptoms began she currently feels well is less confused feeling normal does not feel she can a pass out is no headache chest pain shortness of breath abdominal pain no other complaints MD Complaint: accidental overdose -: hour(s) Context: Accidental Overdose: wanted to get high Treatments Prior to Arrival: other medications - Related Data Home Medications Medication Instructions Recorded Confirmed Aspirin 325 mg PO DAILY 06/10/14 03/30/20 Carvedilol [Coreg] 25 mg PO HS 06/10/14 03/30/20 Levothyroxine Sodium [Synthroid] 75 mcg PO DAILY 06/10/14 03/30/20 Sertraline [Zoloft] 50 mg PO HS 06/10/14 03/30/20 Tolterodine Tartrate [Detrol LA] 4 mg PO HS 06/10/14 03/30/20 hydroCHLOROthiazide [Hydrodiuril] 25 mg PO HS 06/10/14 03/30/20 lisinopriL [Zestril] 10 mg PO HS 06/10/14 03/30/20 metFORMIN HCL [Glucophage] 1,000 mg PO BID 06/10/14 03/30/20 Gabapentin [Neurontin] 300 - 600 mg PO HS 10/05/18 03/30/20 Loratadine [Claritin] 10 mg PO DAILY PRN 10/05/18 03/30/20 glipiZIDE [Glucotrol XL] 2.5 mg PO PC-SUPPER 11/16/18 03/30/20 Ergocalciferol [Vitamin D2] 50,000 unit PO SA 12/10/18 03/30/20 Fluticasone Nasal [place] [Flonase 2 spr EA NOSTRIL DAILY PRN 07/04/19 03/30/20 Nasal [place]] Pravastatin Sodium [Pravachol] 20 mg PO HS 07/08/19 03/30/20 Allergies Allergy/AdvReac Type Severity Reaction Status Date / Time No Known Allergies Allergy Verified 03/30/20 14:09 Review of Systems ROS Statement: Those systems with pertinent positive or pertinent negative responses have been documented in the HPI. ROS Other: All systems not noted in ROS Statement are negative. Past Medical History Past Medical History: Cancer, Diabetes Mellitus, Hypertension, Osteoarthritis (OA), Thyroid Disorder Additional Past Medical History / Comment(s): left hip & neck pain, RLS, vaginal spotting, lt breast cancer History of Any Multi-Drug Resistant Organisms: None Reported Additional Past Surgical History / Comment(s): D & C, colonoscopy, left breast biopsy Past Anesthesia/Blood Transfusion Reactions: Previous Problems w/ Anesthesia Additional Past Anesthesia/Blood Transfusion Reaction / Comment(s): difficult intubation-supposed to have uterine ablation few years ago & couldn't complete, unsure what actual problem is Past Psychological History: Depression Past Alcohol Use History: None Reported Past Drug Use History: None Reported - Past Family History Sister(s) Family Medical History: Cancer General Exam Limitations: no limitations General appearance: alert, in no apparent distress, anxious Head exam: Present: atraumatic, normocephalic, normal inspection Eye exam: Present: normal appearance, PERRL, EOMI. Absent: scleral icterus, conjunctival injection, periorbital swelling ENT exam: Present: normal exam, mucous membranes moist Neck exam: Present: normal inspection. Absent: tenderness, meningismus, lymphadenopathy Respiratory exam: Present: normal lung sounds bilaterally. Absent: respiratory distress, wheezes, rales, rhonchi, stridor Cardiovascular Exam: Present: regular rate, normal rhythm, normal heart sounds. Absent: systolic murmur, diastolic murmur, rubs, gallop, clicks GI/Abdominal exam: Present: soft, normal bowel sounds. Absent: distended, tenderness, guarding, rebound, rigid Extremities exam: Present: normal inspection, full ROM, normal capillary refill. Absent: tenderness, pedal edema, joint swelling, calf tenderness Back exam: Present: normal inspection Neurological exam: Present: alert, oriented X3, CN II-XII intact Psychiatric exam: Present: normal affect, normal mood Skin exam: Present: warm, dry, intact, normal color. Absent: rash Course Vital Signs 10/01/23 10/01/23 03:07 03:58 Temperature 98.2 F Pulse Rate 75 84 Respiratory 18 18 Rate Blood Pressure 129/74 131/80 O2 Sat by Pulse 97 95 Oximetry - Reevaluation(s) Reevaluation #1: 10/01/23 03:28 Medical records reviewed Reevaluation #2: 10/01/23 03:28 Continues to feel improved Reevaluation #3: 10/01/23 03:28 Patient informed of results questions answered Reevaluation #4: Was pt. sent in by a medical professional or institution (, [facility]AH, PRODUCTION ZONE LEADER, urgent care, hospital, or care home...) When possible be specific @ -no Did you speak to anyone other than the patient for history (EMS, parent, family, police, friend...)? What history was obtained from this source @ -no Did you review nursing and triage notes (agree or disagree)? Why? @ -agree Are old charts reviewed (outside hosp., previous admission, EMS record, old EKG, old radiological studies, urgent care reports/EKG's, care home records)? Report findings @ -yes Differential Diagnosis (chest pain, altered mental status, abdominal pain women, abdominal pain men, vaginal bleeding, weakness, fever, dyspnea, syncope, headache, dizziness, GI bleed, back pain, seizure, CVA, palpatations, mental health, musculoskeletal)? @ -prior EKG interpreted by me (3pts min.). @ -no X-rays interpreted by me (1pt min.). @ -no CT interpreted by me (1pt min.). @ -no U/S interpreted by me (1pt. min.). @ -no What testing was considered but not performed or refused? (CT, X-rays, U/S, labs)? Why? @ -none What meds were considered but not given or refused? Why? @ -none Did you discuss the management of the patient with other professionals (professionals i.e. , NORAH, PRODUCTION ZONE LEADER, lab, RT, psych nurse, social media sr strategy manager, driver education road instructor, teacher, chemical instrumentation officer, shelter case manager)? Give summary @ -no Was smoking cessation discussed for >3mins.? @ -no Was critical care preformed (if so, how long)? @ -no Were there social determinants of health that impacted care today? How? (Homelessness, low income, unemployed, alcoholism, drug addiction, transportation, low edu. Level, literacy, decrease access to med. care, fdc, rehab)? @ -none Was there de-escalation of care discussed even if they declined (Discuss DNR or withdrawal of care, Hospice)? DNR status @ -no What co-morbidities impacted this encounter? (DM, HTN, Smoking, COPD, CAD, Cancer, CVA, ARF, Chemo, Hep., AIDS, mental health diagnosis, sleep apnea, morbid obesity)? @ -none Was patient admitted / discharged? Hospital course, mention meds given and route, prescriptions, significant lab abnormalities, going to OR and other pertinent info. @ - 68 female to the ER for evaluation patient was for THC acute overdose, feels well now can be discharged home Discharge Undiagnosed new problem with uncertain prognosis? @ -no Drug Therapy requiring intensive monitoring for toxicity (Heparin, Nitro, Insulin, Cardizem)? @ -no Were any procedures done? @ -no Diagnosis/symptom? @ -THC overdose Acute, or Chronic, or Acute on Chronic? @ -Acute Uncomplicated (without systemic symptoms) or Complicated (systemic symptoms)? @ -Complicated Side effects of treatment? @ -no Exacerbation, Progression, or Severe Exacerbation? @ -exacerbation Poses a threat to life or bodily function? How? (Chest pain, [place], NV, pneumonia, PE, COPD, DKA, ARF, appy, cholecystitis, CVA, Diverticulitis, Homicidal, Suicidal, threat to staff... and all critical care pts) @ -yes with acute overdose Reevaluation #5: Differential Altered Mental Status: Hypoglycemia, DKA, hypercapnia, ETOH, overdose, CO poisoning, trauma, myxedema coma, HTN encephalopathy, infection, encephalitis, psychosis, intercranial hemorrhage, hepatic encephalopathy, meningitis, CVA, this is not meant to be an all-inclusive list Medical Decision Making - Medical Decision Making 68 female to the ER for evaluation patient was for THC acute overdose, feels well now can be discharged home Disposition Clinical Impression: Accidental drug overdose Disposition: HOME SELF-CARE Condition: Fair Instructions (If sedation given, give patient instructions): Adult Overdose (ED) Is patient prescribed a controlled substance at d/c from ED?: No Referrals: Ashleigh Emanuel DO [Primary Care Provider] - 1-2 days Time of Disposition: 03:50
[2023-10-01 03:59] VITALS: BP 131/80; PULSE 84
== END 2023-10-01 04:00 | disposition home or self-care (01) ==
LOC: EC 03:05
DX: T40.711A Poisoning by cannabis, accidental (unintentional), initial encounter (principal)
CPT/HCPCS: 99284